=== PATIENT | female | born 1970 | race Caucasian/White ===

== ENCOUNTER 2020-05-19 02:10 | Emergency (ER) | payer MEDICAID ==
[~2020-05-19] VITALS: Ht 162.6 cm; Wt 73.6 kg
--- NOTE | 2020-05-19 02:29 | NUR ---
Patient presents to ER c/o pain in lower back into legs and abd. Patient has a hx of cancer with bowel resection. Patient states the last six months of chemo did not work and the pain has been increasing. Patient is in obvious pain. Respirations even and unlabored.
[2020-05-19] MEDS ORDERED: HYDROmorphone 1 MG/ML, 1ML INJ ONE ×2 (02:46→03:45)
[2020-05-19] MEDS ORDERED: ONDANSETRON 2MG/ML, 2ML ONE (02:46)
[2020-05-19] MEDS: HYDROmorphone 2 MG/ML, 1ML IVPush PRN ×2 (02:57→03:48)
[2020-05-19 03:00] LABS: BASOPHILS % (AUTO) 1 % (0-1); EOSINOPHILS % (AUTO) 4 % (1-7); LYMPHOCYTES % (AUTO) 25 % (22-44); MEAN CORPUSCULAR HEMOGLOBIN 30.6 pg (27.0-34.8); MEAN PLATELET VOLUME 6.5 fL (7.4-10.4); MONOCYTES % (AUTO) 9 % (2-9); NEUTROPHILS % (AUTO) 62 % (42-75); PLATELET COUNT 316 x10^3/uL (130-400); RED BLOOD COUNT 4.16 x10^6/uL (3.82-5.3); RED CELL DISTRIBUTION WIDTH 13.3 % (9.6-15.2)
[2020-05-19] MEDS ORDERED: SODIUM CHLORIDE FLUSH 10ML SYR IVF ONE (03:00)
[2020-05-19] MEDS ORDERED: ONDANSETRON 2MG/ML, 2ML IVPush ONE (03:00)
[2020-05-19 03:08] LABS: MD NO
[2020-05-19 03:10] LABS: ALANINE AMINOTRANSFERASE 18 U/L (12-78); ALBUMIN 3.3 g/dL (3.4-5.0); ANION GAP 4 mmol/L (5-15); CALCIUM 8.8 mg/dL (8.5-10.1); CHLORIDE 106 mmol/L (98-107); CREATININE 0.94 mg/dL (0.55-1.02)
[2020-05-19 03:12] LABS: ALKALINE PHOSPHATASE 98 U/L (45-117); BILIRUBIN,TOTAL 0.4 mg/dL (0.2-1.0); TOTAL PROTEIN 6.6 g/dL (6.4-8.2)
--- NOTE | 2020-05-19 03:40 | NUR ---
late entry d/t pt care: pt restless in gurney, diaphoretic and appears uncomfortable. pt medicated per mar for pain, vss, wctm.
[2020-05-19] MEDS ORDERED: SERT50TA28 PO (03:50)
[2020-05-19] MEDS ORDERED: TRAM50TA2 PO (03:50)
[2020-05-19] MEDS ORDERED: METO25TA35 PO (03:50)
[2020-05-19] MEDS ORDERED: OXYC5CAP2 PO (03:50)
[2020-05-19] MEDS ORDERED: SILD20TA2 PO (03:50)
[2020-05-19 04:02] LABS: MICROSCOPIC INDICATED
[2020-05-19] MEDS ORDERED: OMNIPAQUE 350 MG/ML, 100ML BOTTLE ONE (04:12)
--- NOTE | 2020-05-19 04:28 | NUR ---
pt back from ct, on monitors, nad, appears slightly more comfortable, denies additional questions or needs at this time. wctm.
[2020-05-19 06:25] VITALS: BP 97/57
--- NOTE | 2020-05-19 06:26 | NUR ---
Patient given discharge instructions and they have confirmed that they understand the instructions. Patient ambulatory with steady gait but preferred wheelchair to dc desk. NAD, DENIES ADDITIONAL NEEDS, ALL QUESTIONS ANSWERED APPROPRIATELY. NO PERSONAL BELONGINGS LEFT IN ROOM AFTER DC.
== END 2020-05-19 06:28 | disposition home or self-care (01) ==
LOC: ED 04:15
DX: C80.1 Malignant (primary) neoplasm, unspecified (principal); R10.84 Generalized abdominal pain; I10 Essential (primary) hypertension; R11.0 Nausea; M54.5 Low back pain
CPT/HCPCS: 36415; 74177; 80053; 81001; 83690; 85025; 96374; 96375; 96376; 99285; J1170; J2405; Q9967